=== PATIENT | male | born 1980 | race Caucasian/White ===

== ENCOUNTER → 2020-12-27 | Outpatient (CLI) | payer BC ==
--- NOTE | 2020-12-27 17:16 | RAD ---
XR CHEST 2V Technique: PA and lateral views of the chest were obtained. Clinical History: Reason: SHORTNESS OF BREATH. / Spl. Instructions: / History: Comparison: None. Findings: The heart and pulmonary vasculature appear within normal limits. The lungs are clear. The pleural ma rgins are clear. Impression: No acute chest process is seen. Electronically signed by: Tomasz Cuevas III, MD (12/27/2020 5:14 PM) [facility]
== END ==
LOC: RAD 16:46
PROVIDERS: ATTEND Family Medicine
DX: R06.02 Shortness of breath (principal)
CPT/HCPCS: 71046